=== PATIENT | female | born 1990 | race Caucasian/White ===

== ENCOUNTER 2021-12-21 04:47 | Emergency (ER) | payer SELFPAY ==
[~2021-12-21] VITALS: Ht 165.1 cm; Wt 67.6 kg
--- NOTE | 2021-12-21 05:06 | NUR ---
BIBFRIEND C/O VAGINAL BLEEDING THIS MORNING, PT 5 WEEKS . SPOTTING X2 DAYS BUT NOTED MORE BLEEDING TODAY AND DIFFUSE CRAMPING. PT AWAKE AND ALERT X4 BREATHING EVEN AND UNLABORED. V/S WNL.
--- NOTE | 2021-12-21 05:18 | NUR ---
URINE COLLECTED AND SENT TO LAB
--- NOTE | 2021-12-21 05:18 | NUR ---
20G IV LINE ESTABLISHED LAC. BLOOD DRAWN AND SENT TO LAB
[2021-12-21 05:32] LABS: BILIRUBIN,URINE MODERATE (NEGATIVE); COLOR,URINE YELLOW (YELLOW); LEUKOCYTE ESTERASE ,URINE TRACE (NEGATIVE); NITRITE, URINE POSITIVE (NEGATIVE); PROTEIN,URINE 30 mg/dl (NEGATIVE); UGLUCOSE NEGATIVE (NEGATIVE)
[2021-12-21 05:34] LABS: BASOPHILS % (AUTO) 0.4 % (0.0-2.0); EOSINOPHILS % (AUTO) 2.3 % (0.0-6.0); HEMATOCRIT 37 % (33-45); HEMOGLOBIN 12.7 g/dL (11.5-14.8); LYMPHOCYTES # (AUTO) 3.9 K/uL (0.8-4.8); LYMPHOCYTES % (AUTO) 50.3 % (20.0-44.0); MEAN CORPUSCULAR HGB CONC 34 g/dl (31.0-36.0); MEAN CORPUSCULAR VOLUME 82 fL (82-100); MONOCYTES # (AUTO) 0.6 K/uL (0.1-1.30); MONOCYTES % (AUTO) 7.2 % (2.0-12.0); NEUTROPHILS # (AUTO) 3.1 K/uL (1.8-8.9); NEUTROPHILS % (AUTO) 39.8 % (43.0-81.0); PLATELET COUNT (AUTO) 321 K/uL (150-450); RED BLOOD CELL COUNT(AUTO) 4.57 MIL/uL (4.0-5.2); WHITE BLOOD COUNT (AUTO) 7.8 K/uL (4.3-11.0)
--- NOTE | 2021-12-21 05:37 | NUR ---
US TECH AT PT'S BEDSIDE
[2021-12-21 05:41] LABS: CALCIUM, SERUM 8.7 mg/dL (8.5-10.1); CREATININE 0.6 mg/dL (0.6-1.3); POTASSIUM 3.7 mmol/L (3.5-5.1)
[2021-12-21 05:44] LABS: BACTERIA,URINE Many /HPF (None Seen); RBC,URINE 21-50 /HPF (0-2); SQUAMOUS EPITHELIAL CELL,UR Many /HPF (None Seen)
[2021-12-21 05:53] LABS: ALBUMIN 3.7 g/dL (3.4-5.0); BILIRUBIN,DIRECT 0.1 mg/dL (0.0-0.2); BILIRUBIN,TOTAL 0.3 mg/dL (0.2-1.0); TOTAL PROTEIN, SERUM 7.8 g/dL (6.4-8.2)
--- NOTE | 2021-12-21 07:50 | NUR ---
IV removed. Catheter intact and site benign. Pressure and 4x4 applied to site. No bleeding noted.Patient discharged to home in stable condition. Written and verbal after care instructions given. Patient verbalizes understanding of instruction.
[2021-12-21 07:51] VITALS: BP 122/66
== END 2021-12-21 07:54 | disposition home or self-care (01) ==
LOC: ER 04:49
DX: O03.9 Complete or unspecified spontaneous abortion without complication (principal); Z60.2 Problems related to living alone; Z3A.01 Less than 8 weeks gestation of pregnancy
CPT/HCPCS: 36415; 76805-TC; 80048-TC; 80076-TC; 81001; 84702-TC; 85025-TC; 85730-TC; 87086-TC

== ENCOUNTER 2023-05-05 00:43 | Emergency (ER) | payer SELFPAY ==
[~2023-05-05] VITALS: Ht 157.5 cm; Wt 73.0 kg
[2023-05-05 01:28] VITALS: BP 138/81; TEMP 98; O2SAT 99
== END 2023-05-05 01:28 | disposition home or self-care (01) ==
LOC: ER 00:50
DX: M54.12 Radiculopathy, cervical region (principal); M62.838 Other muscle spasm; Z60.2 Problems related to living alone

== ENCOUNTER 2023-09-22 01:13 | Emergency (ER) | payer OTHER ==
[2023-09-23] MEDS ORDERED: IBUP-1953 PO (14:05)
== END 2023-09-22 03:58 | disposition left against medical advice (07) ==
LOC: ER 01:26
DX: Z00.00 Encounter for general adult medical examination without abnormal findings (principal); Z53.21 Procedure and treatment not carried out due to patient leaving prior to being seen by health care provider

== ENCOUNTER 2023-09-23 12:58 | Emergency (ER) | payer OTHER ==
[~2023-09-23] VITALS: Ht 157.5 cm; Wt 73.0 kg
[2023-09-23] MEDS ORDERED: IBUPROFEN 600 MG TABLET ONE (13:27)
[2023-09-23] MEDS: IBUPROFEN 600 MG TABLET PO ONE (13:29)
[2023-09-23 13:54] LABS: APPEARANCE,URINE CLEAR (CLEAR); BILIRUBIN,URINE NEGATIVE (NEGATIVE); BLOOD, URINE NEGATIVE Ery/uL (NEGATIVE); COLOR,URINE YELLOW (YELLOW); KETONES,URINE NEGATIVE (NEGATIVE); LEUKOCYTE ESTERASE ,URINE NEGATIVE (NEGATIVE); NITRITE, URINE NEGATIVE (NEGATIVE); PROTEIN,URINE NEGATIVE (NEGATIVE); UGLUCOSE NEGATIVE (NEGATIVE); UROBILINOGEN,URINE 0.2 EU/dL (0.2)
[2023-09-23 13:57] LABS: PREGNANCY TEST URINE QUAL NEGATIVE (NEGATIVE)
[2023-09-23] MEDS ORDERED: IBUP-1953 PO (14:05)
[2023-09-23 14:22] VITALS: BP 127/68; TEMP 98.7; O2SAT 100
== END 2023-09-23 14:22 | disposition home or self-care (01) ==
LOC: ER 12:58
DX: G89.29 Other chronic pain (principal); R10.2 Pelvic and perineal pain; Z60.2 Problems related to living alone
CPT/HCPCS: 84703-TC